=== PATIENT | female | born 1975 | race Caucasian/White ===

== ENCOUNTER → 2021-12-02 | Day surgery (SDC) | payer OTHER ==
[~2021-12-02] VITALS: Ht 165.1 cm; Wt 106.6 kg
[~2021-12-02] MED LIST: ACETAMINOPHEN500 M1 PO; COLACE100 MG PO; HCTZ25 MG PO; HYDROXYZINE 10M10 MG PO; IRON BISGLYCINA28 MG PO; L-METHYLFOLATE15 MG PO; LAMICTAL200 MG PO; LEXAPRO20 MG PO; MIRAPEX1 MG PO; MIRAPEX1.5 MG PO; MOTRIN600 MG PO; OXCARBAZEPINE300 MG PO; OXY-IR 5MG5 MG PO; POTASSIUM GLU2.5 MEQ PO; ZYRTEC10 MG PO
[2021-12-02 09:51] LABS: HCG (URINE) SCREEN NEGATIVE (NEGATIVE)
[2021-12-02 10:31] LABS: ALBUMIN 3.6 g/dL (3.4-5.0); BILIRUBIN - TOTAL 0.3 mg/dL (0.2-1.0); BUN/CREAT RATIO (CALC) 30.5 RATIO; CREATININE 0.59 mg/dL (0.51-0.95); GLOBULIN (CALCULATION) 3.9 g/dL; POTASSIUM 3.1 mmol/L (3.5-5.1); TOTAL PROTEIN 7.5 g/dL (6.4-8.2)
== END | disposition home or self-care (01) ==
LOC: FAS 08:58
PROVIDERS: Anesthesiology
DX: K80.10 Calculus of gallbladder with chronic cholecystitis without obstruction (principal); K82.8 Other specified diseases of gallbladder; I10 Essential (primary) hypertension; F31.9 Bipolar disorder, unspecified; E78.5 Hyperlipidemia, unspecified; E66.01 Morbid (severe) obesity due to excess calories; E55.9 Vitamin D deficiency, unspecified; Z79.899 Other long term (current) drug therapy
CPT/HCPCS: 36415; 80053; 82150; 83690; 84703; 93005; J1100; J1644; J1885; J2250; J2405; J2704; J2710; J3010; J7120